=== PATIENT | male | born 1965 | race Two or more races ===

== ENCOUNTER 2020-12-09 16:35 | Emergency (ER) | payer OTHER ==
[~2020-12-09] VITALS: Ht 185.4 cm; Wt 105.0 kg
[2020-12-09 17:09] VITALS: BP 138/83
== END 2020-12-09 17:13 | disposition home or self-care (01) ==
LOC: ER 16:35
DX: Z48.02 Encounter for removal of sutures (principal); I10 Essential (primary) hypertension; E11.9 Type 2 diabetes mellitus without complications
CPT/HCPCS: 99281